=== PATIENT | male | born 1965 | race Caucasian/White ===

== ENCOUNTER → 2018-11-03 | Outpatient (CLI) | payer BC ==
[2018-11-03 11:01] LABS: HCT 48.9 % (39.0-53.0); HGB 16.1 gm/dL (13.0-17.5); MCH 29.9 pg (25.0-35.0); MCV 90.7 fL (80.0-100.0); Mean Platelet Volume 5.9; Platelet Count 394 k/uL (150-450); RBC 5.39 m/uL (4.30-5.90); RDW 12.4 % (11.5-15.5); WBC 9.2 k/uL (3.8-10.6)
[2018-11-03 11:31] LABS: Anion Gap 11 mmol/L; Blood Urea Nitrogen 31 mg/dL (9-20); Calcium 10.1 mg/dL (8.4-10.2); Carbon Dioxide 26 mmol/L (22-30); Chloride 103 mmol/L (98-107); Glucose 87 mg/dL (74-99); Potassium 4.7 mmol/L (3.5-5.1); Sodium 140 mmol/L (137-145)
== END | disposition home or self-care (01) ==
LOC: LABPAT 10:07
PROVIDERS: ATTEND Urology
DX: Z01.818 Encounter for other preprocedural examination (principal); I10 Essential (primary) hypertension; C61 Malignant neoplasm of prostate; Z01.812 Encounter for preprocedural laboratory examination; Z79.899 Other long term (current) drug therapy
CPT/HCPCS: 36415; 80048; 85027; 93005

== ENCOUNTER 2018-11-11 05:35 | Observation (INO) | payer BC ==
[2018-11-07 12:57] VITALS: BMI 27.3
[~2018-11-11 05:35] MED LIST: DEXAMETHASONE SOD PHOSPHATE 10 MG/ML 1 ML VIAL IV ONE; HEPARIN SODIUM,PORCINE 5,000 UNIT/ML 1 ML VIAL SQ ONE; HYDROmorphone 0.5 MG/0.5 ML SYRINGE IVP PRN; LIDOCAINE 1% 20 ML VIAL (10MG/ML) FOR IV START INTRADERMA PRN; MIDAZOLAM 2 MG/2 ML VIAL IV PRN; ONDANSETRON 4 MG/2 ML VIAL IVP ONE; SCOPOLAMINE 1.5MG/72HR PATCH TRANSDERM ONE; ceFAZolin IN SWFI 2 GM/20 ML SYRINGE IVP ONE
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
[2018-11-11] MEDS ORDERED: LIDOCAINE 1% 20 ML VIAL (10MG/ML) FOR IV START INTRADERMA ONE (07:00)
[2018-11-11] MEDS: LACTATED RINGERS 1,000 ML IV SCH (07:00)
[2018-11-11] MEDS ORDERED: BUPIVACAINE (PF) 0.25% 30 ML VIAL SQ ONE ×3 (07:15→11:32)
[2018-11-11] MEDS ORDERED: PHENYLEPHRINE-0.9% NACL SYG 1 MG/10 ML SYRINGE ONE (07:20)
[2018-11-11] MEDS ORDERED: ROCURONIUM BROMIDE 10 MG/ML 10 ML VIAL IV ONE (07:20)
[2018-11-11] MEDS ORDERED: KETOROLAC 30 MG/ML 1 ML VIAL ONE (07:20)
[2018-11-11] MEDS ORDERED: SUCCINYLCHOLINE CHLORIDE 100 MG/5 ML SYR IV ONE (07:20)
[2018-11-11] MEDS ORDERED: NEOSTIGMINE 1 MG/ML 10 ML VIAL ONE (07:20)
[2018-11-11] MEDS ORDERED: HYDROmorphone (PF) 1 MG/ML ONE (07:20)
[2018-11-11] MEDS ORDERED: MIDAZOLAM 2 MG/2 ML VIAL ONE (07:20)
[2018-11-11] MEDS ORDERED: LIDOCAINE 1% INJ 10MG/ML (20 ML MDV) ONE (07:20)
[2018-11-11] MEDS ORDERED: GLYCOPYRROLATE 0.2 MG/ML 2 ML VIAL ONE (07:20)
[2018-11-11] MEDS ORDERED: fentaNYL (PF) 50 MCG/ML 2 ML AMP ONE (07:20)
[2018-11-11] MEDS ORDERED: PROPOFOL 10 MG/ML 20 ML VIAL IV ONE (07:20)
[2018-11-11] MEDS ORDERED: ONDANSETRON 4 MG/2 ML VIAL IVP PRN (11:32)
[2018-11-11] MEDS ORDERED: KETOROLAC 30 MG/ML 1 ML VIAL IVP PRN (11:32)
--- NOTE | 2018-11-11 11:44 | P.OP ---
Date of Procedure: 11/11/18 Preoperative Diagnosis: Adenocarcinoma of the Prostate, Clinical Stage [id number] Postoperative Diagnosis: Same, Intra-Abdominal Adhesions. Procedure(s) Performed: Laparoscopic Enterolysis, Bilateral Nerve Sparing Robotic-assisted Laparoscopic Prostatectomy (RALP) Anesthesia: CORDELIA Surgeon: Daniel Rios Therapeutic Activities Services Worker #1: Wandy Wang Estimated Blood Loss (ml): 200 IV fluids (ml): 700 Pathology: other (Prostate with seminal vesicles) Condition: stable Disposition: PACU Indications for Procedure: The patient is a 53-year-old white male recently found to have elevated PSA levels of 5.85 and 6.28. CLOVIS revealed no nodularity. A prostate ultrasound revealed a prostate volume of 55 mL. A total of 12 biopsies were obtained. All of the right-sided biopsies were negative. 2 of the 6 left-sided biopsies showed evidence of malignancy. [place] 6 adenocarcinoma was seen at the left apex, and Myrna 7 (3+4) adenocarcinoma was seen at the left lateral apex. His Polaris score was 4.7, suggestive of more aggressive disease than what would otherwise be predicted. He reports mild lower urinary tract symptoms. He denies erectile dysfunction. Operative Findings: No evidence of extraprostatic disease. Significant right sided adhesions. Description of Procedure: The patient was taken in the operating room and placed in the dorsal lithotomy position, with his legs supported in Kodi stirrups. He was carefully positioned on a beanbag for stability. The abdomen and external genitalia were prepped and draped sterilely. A Connelly catheter was inserted. The Veress needle was passed through the anterior abdominal wall immediately cephalad to the umbilicus, and insufflation was attempted. However, high pressure readings suggested that the needle tip was not in an intraperitoneal location. Therefore, the Veress needle was passed through the anterior abdominal wall within the left upper quadrant, and insufflation was performed to a pressure of 20 mm Hg. Once insufflation was performed, the laparoscopic camera was passed through the port and it was verified that there were no adhesions in the region of the umbilicus. However, there were significant adhesions to the anterior abdominal wall within the right abdomen. A supraumbilical incision was made, through which a 12 mm camera port was placed. Under camera guidance, 2 8 mm robotic ports were placed on the left side. Laparoscopic scissors were then used to take down the adhesions to the anterior abdominal wall on the right side. An 8 mm port was then placed on the right, along with an additional 12 mm port on the right lateral side for use as an licensed investment sales assistant port. A 5 mm port was placed to the right of the camera port for suction. The patient was placed in Trendelenburg position, and docking was then performed to the da Sihrley system utilizing a 4-arm approach. The abdomen was examined. It was apparent that the initial placement of the Veress needle resulted in a small amount of mesenteric air. There was no bleeding in this area. The small bowel was inspected very carefully to ensure that a bowel injury had not occurred. Once this was confirmed, the sigmoid colon was mobilized out of the pelvis. The peritoneum was incised lateral to the medial umbilical ligaments bilaterally, exposing the pubis. The peritoneum was then incised across the midline, allowing the bladder flap to be taken down. The endopelvic fascia was opened bilaterally, and muscular attachments from the urogenital diaphragm were swept away from the prostate. The vesical neck was incised transversely, down to the lumen. The Connelly catheter was brought out through the anterior vesical neck incision and was used for traction. The posterior aspect of the vesical neck was incised, such that the full-thickness of the vesical neck was divided. The anterior layer of the Denonvilliers fascia was incised, exposing the vas deferens. Each were isolated and divided. Next, each of the seminal vesicles were dissected away from adjacent tissues, and vascular attachments were cauterized and divided. The posterior leaf of Denonvilliers fascia was incised transversely, allowing entry into the plane between the prostate and rectum. With lateral spreading, this plane was developed down to the apex. This exposed the lateral vascular pedicles bilaterally. These were clipped and divided in an antegrade fashion, down to the apex. The use of electrocautery was avoided to prevent thermal damage to the nerves. The plane of dissection was immediately adjacent to the prostate, particularly on the right side, to preserve the neurovascular bundle. The remaining apical attachments were swept away from the prostate. The dorsal venous complex was incised, as well as periurethral tissue. At this point, only the urethra remained intact. This was transected immediately distal to the prostatic apex using cold scissors. The specimen was placed within a specimen bag. The dorsal venous complex was sutured using a V-Loc suture in a running fashion. A second V-Loc suture was then used to place the Robbin stitch, incorporating the rhabdosphincter and the edge of Denonvilliers fascia. This allowed the bl adder to be taken down to the urethra, leaving the vesical neck immediately adjacent to the urethra. The vesicourethral anastomosis was then performed using a V-Loc suture in a running fashion. After completing the anastomosis, an 18-Dutch Connelly catheter was placed and approximately 150 mL of 0.9 normal saline were instilled into the bladder. No extravasation of irrigant from the vesicourethral anastomosis was noted. A small amount of oozing was noted from the vascular pedicles, so Surgicel was placed bilaterally. Tisseel was sprayed into the pelvis over the vascular pedicles, dorsal vein, and vesicourethral anastomosis. The patient was returned to the supine position. Undocking was performed, and the specimen bag sutures were passed through the camera port. After removing all the ports and allowing all of the CO2 to be released from the peritoneal cavity, the camera port incision was enlarged to allow removal of the surgical specimen. The fascia of this incision was then closed using 0 Vicryl suture in a running fashion. Each of the skin incisions were then closed using 4-0 Monocryl suture in a subcuticular fashion. Marcaine was injected at each of the incision sites. Dermabond was applied to each incision. The Connelly catheter was connected to gravity drainage. All sponge and needle counts were correct. The patient tolerated the procedure well was taken to the recovery room in stable condition.
[2018-11-11] MEDS ORDERED: LACTATED RINGERS 1,000 ML IV ONE (12:20)
[2018-11-11] MEDS: DEXTROSE 5%-0.45% NACL 1,000 ML IV SCH ×2 (13:03→20:06)
[2018-11-11] MEDS: HYDROmorphone 1 MG/ML 1 ML SYRINGE IVP PRN ×2 (15:37→22:22)
[2018-11-11] MEDS: HEPARIN SODIUM,PORCINE 5,000 UNIT/ML 1 ML VIAL SQ SCH (20:05)
[2018-11-11] MEDS ORDERED: LISINOPRIL-HCTZ 20-25 MG 1 EACH TAB PO SCH (21:00)
[2018-11-12] MEDS: HYDROmorphone 1 MG/ML 1 ML SYRINGE IVP PRN ×2 (03:42→08:06)
[2018-11-12] MEDS: DEXTROSE 5%-0.45% NACL 1,000 ML IV SCH (03:43)
[2018-11-12] MEDS: HEPARIN SODIUM,PORCINE 5,000 UNIT/ML 1 ML VIAL SQ SCH (10:12)
--- NOTE | 2018-11-12 10:39 | P.DS ---
Providers Date of admission: 11/12/18 04:20 Expected date of discharge: 11/12/18 Attending physician: Daniel Rios Primary care physician: [facility] Course: The patient is a 53-year-old male who was recently diagnosed with Myrna 3+4 equal 7 prostate cancer associated with an unfavorable Prolaris score. After reviewing treatment options the patient has elected to proceed with radical prostatectomy and was admitted for this purpose. On the date of admission patient underwent robotically assisted radical prostatectomy and pelvic lymphadenectomy performed by Dr. Rios. A Connelly catheter was left postoperatively. The patient was relatively comfortable overnight and was discharged the following morning at which time he was tolerating a regular diet and was ambulatory. His abdominal incisions appear to be intact and uninflamed. Urine draining from his Connelly catheter was clear. Procedures: Robotically assisted laparoscopic radical prostatectomy and pelvic lymphadenectomy 10/14/2018 Patient Condition at Discharge: Good Plan - Discharge Summary Discharge Rx Participant: No New Discharge Prescriptions: New Ciprofloxacin HCl [Cipro] 250 mg PO Q12HR #6 tablet Hydrocodone/Acetaminophen [[place] 5-325] 1 - 2 each PO Q4HR PRN #6 tab PRN Reason: Pain No Action Lisinopril-Hctz 20-25 mg [Zestoretic 20-25] 1 tab PO HS Discharge Medication List Lisinopril-Hctz 20-25 mg [Zestoretic 20-25] 1 tab PO HS 11/07/18 [History] Ciprofloxacin HCl [Cipro] 250 mg PO Q12HR #6 tablet 11/11/18 [Rx] Hydrocodone/Acetaminophen [[place] 5-325] 1 - 2 each PO Q4HR PRN #6 tab 11/11/18 [Rx] Follow up Appointment(s)/Referral(s): Daniel Rios MD [STAFF PHYSICIAN] - 11/21/18 Activity/Diet/Wound Care/Special Instructions: Discharge home with Connelly catheter. Instruct patient to use overnight drainage bag as well as urinary leg bag. Okay to shower. Diet as tolerated. No lifting, driving, or strenuous activity. Reassure patient that abdominal wall ecchymosis and penoscrotal swelling are normal. Instruct patient to begin taking antibiotics one day prior to F/U appointment, at which time the Connelly catheter will be removed. Discharge Disposition: HOME SELF-CARE Pending Studies Pending Results: Pathology report
[2018-11-12 14:31] VITALS: RESP 16; TEMP 98.3
[2018-11-12 14:59] VITALS: BP 121/81; PULSE 109
== END 2018-11-12 15:50 | disposition home or self-care (01) ==
LOC: OR 05:35 → 4SSUR 11:46 → OR 11-12 04:29
PROVIDERS: ADMIT Urology; ATTEND Urology
DX: C61 Malignant neoplasm of prostate (principal); K66.0 Peritoneal adhesions (postprocedural) (postinfection); I10 Essential (primary) hypertension; Z87.891 Personal history of nicotine dependence; Z79.899 Other long term (current) drug therapy
CPT/HCPCS: 86900; 86901; 86850; 88309; 55866; 44180; 38589; G0378; C1762; J2250; J1644 ×2; J1100; J2710; J2405; J2001; J3010; J1885; J1170 ×2; J2370; J0330; J2704; J0690

== ENCOUNTER → 2018-12-15 | Outpatient (CLI) | payer BC | END | disposition home or self-care (01) | LOC: LABWHC1 09:24 | PROVIDERS: ATTEND Urology | DX: C61 Malignant neoplasm of prostate (principal) | CPT/HCPCS: 36415; 84153 ==

== ENCOUNTER → 2019-03-16 | Outpatient (CLI) | payer BC | END | disposition home or self-care (01) | LOC: LABWHC1 10:14 | PROVIDERS: ATTEND Urology | DX: C61 Malignant neoplasm of prostate (principal) | CPT/HCPCS: 36415; 84153 ==

== ENCOUNTER → 2019-06-19 | Outpatient (CLI) | payer BC | END | disposition home or self-care (01) | LOC: LABWHC1 08:46 | PROVIDERS: ATTEND Urology | DX: C61 Malignant neoplasm of prostate (principal) | CPT/HCPCS: 36415; 84153 ==

== ENCOUNTER → 2019-10-12 | Outpatient (CLI) | payer BC | END | disposition home or self-care (01) | LOC: LABWHC1 09:06 | PROVIDERS: ATTEND Urology | DX: C61 Malignant neoplasm of prostate (principal) | CPT/HCPCS: 36415; 84153 ==